=== PATIENT | female | born 1990 | race Caucasian/White ===

== ENCOUNTER → 2018-10-18 | Emergency (ER) | payer OTHER ==
[~2018-10-18] VITALS: Ht 154.9 cm; Wt 68.0 kg
[~2018-10-18] MED LIST: NAPR-985 PO
[2018-10-18 13:21] VITALS: BP 154/82; PULSE 66; RESP 18; Ht 154.9 cm; Wt 68.0 kg
--- NOTE | 2018-10-18 13:24 | EN ---
Date/Time of Note Date/Time of Note DATE: 10/18/18 TIME: 13:23 ER Progress Note Medical screening [id number] female with 1 day history of vomiting right lower quadrant abdominal pain and pelvic pain. History of ovarian cyst. Denies . Last menstrual. 3 weeks ago. ED 2 appropriate KEVAN GRAHAM MD Oct 18, 2018 13:24
--- NOTE | 2018-10-18 15:54 | ERD ---
ER Documentation Chief Complaint Chief Complaint abdominal pain and vomiting x 2 days HPI 28 yr old female complaining of abdominal pain x 2 days. Took ibuprofen with mild alleviation. ONe episode of vomiting. Denies medical problems. NKDA. Surgical denies. Social history denies. Has history of ovarian cyst. ROS All systems reviewed and are negative except as per history of present illness. Medications Home Meds Active Scripts Naproxen* (Naprosyn*) 500 Mg Tablet, 500 MG PO BID PRN for PAIN AND/OR INFLAMMATION, #30 TAB Prov:DREA AREVALO PA-C 10/18/18 Allergies Allergies: Coded Allergies: No Known Allergy (Unverified , 10/18/18) PMhx/Soc Medical and Surgical Hx: pt denies Medical Hx, pt denies Surgical Hx Hx Alcohol Use: No Hx Substance Use: No Hx Tobacco Use: No Smoking Status: Never smoker FmHx Family History: No diabetes, No coronary disease, No other Physical Exam Vitals Vital Signs Date Temp Pulse Resp B/P (MAP) Pulse Ox O2 O2 Flow FiO2 Time Delivery Rate 10/18/18 97.7 66 18 154/82 98 13:21 (106) Physical Exam GENERAL: The patient is well-appearing, well-nourished, in no acute distress CHEST: Clear to auscultation bilaterally. There are no rales, wheezes or rhonchi. HEART: Regular rate and rhythm. No murmurs, clicks, rubs or gallops. ABDOMEN:Soft, nontender and nondistended. Good bowel sounds. No rebound or guarding. No gross peritonitis. No gross organomegaly or masses. Result Diagram: 10/18/18 1353 10/18/18 1353 Results 24 hrs Laboratory Tests Test 10/18/18 13:53 10/18/18 13:57 White Blood Count 16.7 10^3/ul Red Blood Count 4.77 10^6/ul Hemoglobin 14.6 g/dl Hematocrit 44.5 % Mean Corpuscular Volume 93.3 fl Mean Corpuscular Hemoglobin 30.6 pg Mean Corpuscular Hemoglobin Concent 32.8 g/dl Red Cell Distribution Width 12.6 % Platelet Count 291 10^3/UL Mean Platelet Volume 10.9 fl Immature Granulocytes % 0.300 % Neutrophils % 90.1 % Lymphocytes % 7.5 % Monocytes % 1.9 % Eosinophils % 0.0 % Basophils % 0.2 % Nucleated Red Blood Cells % 0.0 /100WBC Immature Granulocytes # 0.050 10^3/ul Neutrophils # 15.0 10^3/ul Lymphocytes # 1.3 10^3/ul Monocytes # 0.3 10^3/ul Eosinophils # 0.0 10^3/ul Basophils # 0.0 10^3/ul Nucleated Red Blood Cells # 0.0 10^3/ul Urine Color YELLOW Urine Clarity SLIGHTLY CLOUDY Urine pH 6.0 Urine Specific Tram 1.028 Urine Ketones 2+ mg/dL Urine Nitrite NEGATIVE mg/dL Urine Bilirubin NEGATIVE mg/dL Urine Urobilinogen NEGATIVE mg/dL Urine Leukocyte Esterase NEGATIVE Dinora/ul Urine Microscopic RBC 1 /HPF Urine Microscopic WBC 2 /HPF Urine Squamous Epithelial Cells FEW /HPF Urine Mucus FEW /HPF Urine Hemoglobin NEGATIVE mg/dL Urine Glucose NEGATIVE mg/dL Urine Total Protein 2+ mg/dl Sodium Level 144 mmol/L Potassium Level 4.7 mmol/L Chloride Level 105 mmol/L Carbon Dioxide Level 22 mmol/L Anion Gap 17 Blood Urea Nitrogen 10 mg/dl Creatinine 0.55 mg/dl Est Glomerular Filtrat Rate mL/min > 60 mL/min Glucose Level 113 mg/dl Calcium Level 10.3 mg/dl Total Bilirubin 0.4 mg/dl Direct Bilirubin 0.00 mg/dl Indirect Bilirubin 0.4 mg/dl Aspartate Amino Transf (AST/SGOT) 39 IU/L Alanine Aminotransferase (ALT/SGPT) 29 IU/L Alkaline Phosphatase 56 IU/L Total Protein 8.8 g/dl Albumin 5.1 g/dl Globulin 3.70 g/dl Albumin/Globulin Ratio 1.37 Lipase 69 U/L POC Beta HCG, Qualitative NEGATIVE Procedures/MDM DIAGNOSTIC IMAGING REPORT Patient: MUNDO TRIPP : 1990 Age: 28 Sex: F MR #: [id number] DOS: 10/18/18 1344 Ordering MD: CARMEN AREVALO PA-C Location: [facility] Room/Bed: PROCEDURE: US Pelvis. CLINICAL INDICATION: pelvic pain TECHNIQUE: Multiple sonographic images of the pelvis were obtained utilizing transabdominal and endovaginal technique. The images were reviewed on a PACS workstation. COMPARISON: None. FINDINGS: The uterus is normal in size with a normal appearance of the myometrium. The u terus measures 6.8 x 2.7 x 4.2 cm. The endometrial stripe is homogeneous in appearance and has the thickness of 7 mm. The ovaries are normal in size and echogenicity. Normal Doppler flow is identif ied in both ovaries. The right ovary measures 2.8 x 1.9 x 2.4 cm. There is a 3.6 x 2.8 x 3.8 cm simple cyst in the right adnexa, separate from the right ovary. The left ovary measures 3.3 x 2.0 x 2.6 cm. There is a 2.2 cm simple cyst in the left ovary. There is a small amount of free fluid in the right adnexa. RPTAT: AA IMPRESSION: Large 3.8 cm simple cyst in the right adnexa, separate from the right ovary. Small simple cyst in the left ovary. MDM: 28-year-old female presenting with right lower pelvic pain. Patient does not have pain with jumping I have low suspicion for appendicitis. Ultrasound shows ovarian cyst with no signs of torsion. I have low suspicion for urinary tract infection or infection process. Patient is discharged with strict ER precautions I do not feel further blood work or imaging is indicated. Patient is told symptoms change or worsen to return immediately to the ER. All questions answered at discharge Departure Diagnosis: Primary Impression: Ovarian cyst Condition: Stable Patient Instructions: Ovarian Cyst Referrals: [facility] YOU HAVE RECEIVED A MEDICAL SCREENING EXAM AND THE RESULTS INDICATE THAT YOU DO NOT HAVE A CONDITION THAT REQUIRES URGENT TREATMENT IN THE EMERGENCY DEPARTMENT. FURTHER EVALUATION AND TREATMENT OF YOUR CONDITION CAN WAIT UNTIL YOU ARE SEEN IN YOUR DOCTORS OFFICE WITHIN THE NEXT 1-2 DAYS. IT IS YOUR RESPONSIBILITY TO MAKE AN APPOINTMENT FOR FOLOW-UP CARE. IF YOU HAVE A PRIMARY DOCTOR --you should call your primary doctor and schedule an appointment IF YOU DO NOT HAVE A PRIMARY DOCTOR YOU CAN CALL OUR PHYSICIAN REFERRAL HOTLINE AT IF YOU CAN NOT AFFORD TO SEE A PHYSICIAN YOU CAN CHOSE FROM THE FOLLOWING [facility] CLINICS [facility] [address] [facility] [address] [facility] [facility] [address] [facility] [address] [facility]. [facility] [address] [facility]. [facility] [address] Additional Instructions: FOLLOW UP WITH YOUR PRIMARY CARE PHYSICIAN TOMORROW.Return to this facility if you are not improving as expected. DREA AREVALO PA-C Oct 18, 2018 15:54
== END | disposition home or self-care (01) ==
LOC: FTE 13:10
DX: N83.201 Unspecified ovarian cyst, right side (principal); R10.2 Pelvic and perineal pain
CPT/HCPCS: 76830; 76856; 80053; 81001; 81025; 83690; 85025